=== PATIENT | male | born 1960 | race African-American/Black ===

== ENCOUNTER 2024-04-19 02:09 | Emergency (ER) | payer OTHER | END 2024-04-19 02:49 | LOC: NAV ERS 02:09 | DX: T16.2XXA Foreign body in left ear, initial encounter (principal); E11.9 Type 2 diabetes mellitus without complications; E78.5 Hyperlipidemia, unspecified; Z79.4 Long term (current) use of insulin; Z79.899 Other long term (current) drug therapy; W44.G1XA Audio device entering into or through a natural orifice, initial encounter | CPT/HCPCS: 99283 ==